=== PATIENT | female | born 1975 | race Caucasian/White ===

== ENCOUNTER → 2017-12-22 | Emergency (ER) | payer OTHER ==
[~2017-12-22] VITALS: Ht 152.4 cm; Wt 53.1 kg
[~2017-12-22] MED LIST: LEVSIN0.125 MG PO; MIRALAX12 EA PO; PROTONIX40 MG PO; ZANTAC300 MG PO
== END | disposition home or self-care (01) ==
LOC: ER 16:38
DX: M62.838 Other muscle spasm (principal); G44.209 Tension-type headache, unspecified, not intractable

== ENCOUNTER 2018-04-15 09:41 | Emergency (ER) | payer OTHER ==
[~2018-04-15] VITALS: Ht 149.9 cm; Wt 52.2 kg
[2018-04-15] MEDS ORDERED: IBUPROFEN800 MG PO (15:12)
== END 2018-04-15 15:59 | disposition home or self-care (01) ==
LOC: ER 09:41
DX: D25.9 Leiomyoma of uterus, unspecified (principal)

== ENCOUNTER 2018-08-06 20:10 | Emergency (ER) | payer OTHER ==
[~2018-08-06] VITALS: Ht 152.4 cm; Wt 54.4 kg
[~2018-08-06 20:10] MED LIST changes: +IBUPROFEN800 MG PO
== END 2018-08-06 23:45 | disposition home or self-care (01) ==
LOC: ER 20:10
DX: K29.70 Gastritis, unspecified, without bleeding (principal); K59.09 Other constipation